=== PATIENT | male | born 1960 | race Caucasian/White ===

== ENCOUNTER 2017-07-06 08:34 | Emergency (ER) | payer BC, SELFPAY ==
[2017-07-06] MEDS ORDERED: Ketorolac Tromethamine 60 MG/2 ML VIAL ONE (09:01)
--- NOTE | 2017-07-06 09:21 | RAD ---
PA AND LATERAL VIEWS OF CHEST: Date: 07/06/17 HISTORY: Injury, chest pain, back pain. FINDINGS/IMPRESSION: Comparison made with exam of 11/03/15. The heart size is borderline. The lungs are expanded with suggestion of a small right pleural effusio n and mild atelectatic change in the right lung base. No pneumothoraces are seen. POS: H
--- NOTE | 2017-07-06 09:26 | RAD ---
LUMBAR SPINE THREE VIEWS: History: Low back pain. Injury. FINDINGS: There are five lumbar type vertebrae. Pedicles are intact. Vertebral body height and alignment are ma intained. Osteophytosis is present throughout the vertebral bodies and facets. IMPRESSION: Lumbar spondylosis. No evidence of compression fracture. POS: [facility]ANE[facility]
== END 2017-07-06 09:51 | disposition home or self-care (01) ==
LOC: NAV ERS 08:34
DX: S39.012A Strain of muscle, fascia and tendon of lower back, initial encounter (principal); S00.81XA Abrasion of other part of head, initial encounter; E78.5 Hyperlipidemia, unspecified; I10 Essential (primary) hypertension; F17.210 Nicotine dependence, cigarettes, uncomplicated; Z79.899 Other long term (current) drug therapy; W20.8XXA Other cause of strike by thrown, projected or falling object, initial encounter
CPT/HCPCS: 71046; 72100; 96372; J1885